=== PATIENT | female | born 1995 | race African-American/Black ===

== ENCOUNTER 2019-11-02 09:31 | Outpatient (CLI) | payer OTHER ==
--- NOTE | 2019-11-02 12:28 | ULT ---
ULTRASOUND COMPLETE GREATER THAN 14 WEEKS: Date: 11/02/2019 HISTORY: anatomy evaluation. FINDINGS: Single, viable intrauterine fetus is noted in vertex presentation. The placenta is posterior. Amnioti c fluid within normal limits. Cervical length 4.1 cm. heart rate of 152 bpm. Anatomy: Visualized brain, 4 chamber heart, 3 vessel cord, stomach, bladder, kidneys, spine, and extremi ty regions are unremarkable. Biometry: BPD: 5.2 cm, 22 weeks/0 days HC: 20.0 cm, 22 weeks/2 days AC: 15.5 cm, 20 weeks/5 days FL: 3.5 cm, 21 weeks/1 day IMPRESSION: Gestational age average is 21 weeks/4 days. CRUZ is 03/10/2018. Estimated weight is 394 gm. POS: [facility]
== END 2019-11-02 09:32 | disposition home or self-care (01) ==
LOC: BICULT 09:31
PROVIDERS: ATTEND Family Medicine
DX: O09.892 Supervision of other high risk pregnancies, second trimester (principal); Z3A.21 21 weeks gestation of pregnancy
CPT/HCPCS: 76805

== ENCOUNTER 2020-10-23 22:07 | Emergency (ER) | payer OTHER | END 2020-10-23 22:31 | disposition left against medical advice (07) | LOC: ERS 22:07 | DX: Z53.21 Procedure and treatment not carried out due to patient leaving prior to being seen by health care provider (principal) ==

== ENCOUNTER 2022-01-09 07:39 | Emergency (ER) | payer OTHER ==
[2022-01-09 08:50] LABS: Glucose, Urine (Dipstick) Negative (Negative); pH, Urine 6.5 (5.0-9.0)
[2022-01-09 08:52] LABS: Bilirubin Unable to Interpret (Negative); Blood, Urine Unable to Interpret (Negative); Clarity Hazy (Clear); Ketone, Urine Unable to Interpret mg/dL (Negative); Leukocyte Unable to Interpret (Negative); Nitrite Unable to Interpret (Negative); Protein, Urine (Dipstick) Unable to Interpret mg/dL (Neg-Trace); Urobilinogen UNABLE TO INTERPRET mg/dL (Less than 2)
[2022-01-09 08:53] LABS: Pregnancy Test - Urine (BHCG) Negative (Negative); Pregu Control Bar Appear? YES (CONTROL BAR)
[2022-01-09 08:54] LABS: Pregu Control Background? CLEAR/WHITE (CLR/WHITE)
[2022-01-09 08:55] LABS: RBC/HPF Greater than 50 HPF (0-3); WBC/HPF 0-3 HPF (0-3)
[2022-01-09 08:56] LABS: Bacteria/HPF Rare-Few HPF (None Seen)
[2022-01-09] MEDS ORDERED: Ketorolac Tromethamine 30 MG/ML VIAL ONE (09:06)
== END 2022-01-09 09:14 | disposition home or self-care (01) ==
LOC: ERS 07:39
DX: S29.012A Strain of muscle and tendon of back wall of thorax, initial encounter (principal); J45.909 Unspecified asthma, uncomplicated; X50.9XXA Other and unspecified overexertion or strenuous movements or postures, initial encounter
CPT/HCPCS: 81003; 81015; 81025; 96372; 99283; J1885

== ENCOUNTER 2022-02-19 06:06 | Emergency (ER) | payer OTHER ==
[2022-02-19 06:54] LABS: Bilirubin Negative (Negative); Blood, Urine Negative (Negative); Clarity Clear (Clear); Glucose, Urine (Dipstick) Normal (Negative); Ketone, Urine Negative (Negative); Leukocyte Negative Leu/uL (Negative); Nitrite Negative (Negative); Protein, Urine (Dipstick) 10 mg/dL (Neg-Trace); Urobilinogen Normal mg/dL (Less than 2)
== END 2022-02-19 07:59 | disposition left against medical advice (07) ==
LOC: ERS 06:06
DX: Z53.21 Procedure and treatment not carried out due to patient leaving prior to being seen by health care provider (principal)
CPT/HCPCS: 71045; 81003; 93005